=== PATIENT | female | born 1980 | race Caucasian/White ===

== ENCOUNTER 2017-02-16 09:24 | Emergency (ER) | payer OTHER ==
[2017-02-16 09:29] VITALS: BP 119/88
== END 2017-02-16 12:05 | disposition home or self-care (01) ==
LOC: ED 09:24
DX: M75.51 Bursitis of right shoulder (principal)

== ENCOUNTER 2017-04-04 16:50 | Emergency (ER) | payer OTHER ==
[~2017-04-04] VITALS: Ht 154.9 cm; Wt 52.2 kg
[2017-04-04 17:28] VITALS: BP 112/68
== END 2017-04-04 17:28 | disposition home or self-care (01) ==
LOC: ED 16:50
DX: R51 Headache (principal); R42 Dizziness and giddiness; H92.02 Otalgia, left ear; Z88.0 Allergy status to penicillin

== ENCOUNTER 2017-05-09 13:03 | Emergency (ER) | payer OTHER ==
[~2017-05-09] VITALS: Ht 154.9 cm; Wt 51.2 kg
[2017-05-09 14:37] LABS: AMPHETAMINE QUAL UR NONE DETECTED (NEG <=1000)
[2017-05-09 15:30] VITALS: BP 127/79
== END 2017-05-09 15:30 | disposition home or self-care (01) ==
LOC: ED 13:03
PROVIDERS: Emergency Medicine
DX: M79.7 Fibromyalgia (principal); M54.12 Radiculopathy, cervical region; M54.16 Radiculopathy, lumbar region; Z88.0 Allergy status to penicillin; Z90.710 Acquired absence of both cervix and uterus
CPT/HCPCS: J1885

== ENCOUNTER 2017-07-27 19:49 | Emergency (ER) | payer OTHER ==
[~2017-07-27] VITALS: Ht 154.9 cm; Wt 49.9 kg
[2017-07-27 19:57] VITALS: Ht 154.9 cm; Wt 49.9 kg
[2017-07-27 21:46] LABS: BASOPHIL % 0.7 % (0-2); PLATELET COUNT 268 x10^3mcL (130-400); RED CELL DISTRIBUTION WIDTH 12.4 % (11.5-14.5)
[2017-07-27 21:52] LABS: CALCIUM 8.6 mg/dL (8.5-10.1); CARBON DIOXIDE 27.5 mmol/L (21-32); CHLORIDE SERUM 104 mmol/L (98-107); CREATININE SERUM 0.7 mg/dL (0.6-1.0); GFR1 > 60 mL/min; GLUCOSE SERUM 107 mg/dL (74-106); POTASSIUM SERUM 3.6 mmol/L (3.5-5.1); SODIUM SERUM 141 mmol/L (136-145)
[2017-07-27 22:01] LABS: ALBUMIN 4.1 g/dL (3.4-5.0); ALKALINE PHOSPHATASE 93 U/L (46-116); ALT/SGPT 18 U/L (14-59); AST/SGOT 13 U/L (15-37); BILIRUBIN TOTAL 0.2 mg/dL (0.20-1.00)
[2017-07-27 22:48] VITALS: BP 116/82
== END 2017-07-27 22:48 | disposition home or self-care (01) ==
LOC: ED 19:49
PROVIDERS: Specialist
DX: R10.30 Lower abdominal pain, unspecified (principal); R11.0 Nausea; R19.7 Diarrhea, unspecified; R63.0 Anorexia; R42 Dizziness and giddiness; Z88.0 Allergy status to penicillin
CPT/HCPCS: J1885; J7030; Q0162

== ENCOUNTER 2017-09-18 10:15 | Emergency (ER) | payer OTHER ==
[~2017-09-18] VITALS: Ht 154.9 cm; Wt 49.4 kg
[2017-09-18 10:18] VITALS: Ht 154.9 cm; Wt 49.4 kg
[2017-09-18 12:59] VITALS: BP 112/72
== END 2017-09-18 12:59 | disposition home or self-care (01) ==
LOC: ED 10:15
DX: M79.631 Pain in right forearm (principal); H92.01 Otalgia, right ear; Z88.0 Allergy status to penicillin; Z90.710 Acquired absence of both cervix and uterus

== ENCOUNTER 2018-06-12 13:20 | Emergency (ER) | payer OTHER ==
[~2018-06-12] VITALS: Ht 154.9 cm; Wt 46.3 kg
[2018-06-12 13:25] VITALS: Ht 154.9 cm; Wt 46.3 kg
[2018-06-12 14:54] LABS: BASOPHIL % 0.7 % (0-2); PLATELET COUNT 259 x10^3mcL (130-400); RED CELL DISTRIBUTION WIDTH 12.4 % (11.5-14.5)
[2018-06-12 14:59] LABS: CARBON DIOXIDE 26.9 mmol/L (21-32); CHLORIDE SERUM 102 mmol/L (98-107); CREATININE SERUM 0.7 mg/dL (0.6-1.0); GFR1 > 60 mL/min; GLUCOSE SERUM 94 mg/dL (74-106); POTASSIUM SERUM 3.1 mmol/L (3.5-5.1); SODIUM SERUM 139 mmol/L (136-145)
[2018-06-12 16:59] VITALS: BP 112/68
== END 2018-06-12 16:59 | disposition home or self-care (01) ==
LOC: ED 13:20
PROVIDERS: Emergency Medicine
DX: R00.2 Palpitations (principal); R19.7 Diarrhea, unspecified; R11.10 Vomiting, unspecified; Z88.0 Allergy status to penicillin; Z90.711 Acquired absence of uterus with remaining cervical stump; Z98.890 Other specified postprocedural states
CPT/HCPCS: J3475; J7030; Q0092

== ENCOUNTER 2019-08-10 16:39 | Emergency (ER) | payer OTHER ==
[~2019-08-10] VITALS: Ht 154.9 cm; Wt 52.6 kg
[2019-08-10 16:46] VITALS: Ht 154.9 cm; Wt 52.6 kg
[2019-08-10 17:32] LABS: BASOPHIL % 0.7 % (0-2); PLATELET COUNT 221 x10^3mcL (130-400); RED CELL DISTRIBUTION WIDTH 12.3 % (11.5-14.5)
[2019-08-10 17:44] LABS: CARBON DIOXIDE 25.5 mmol/L (21-32); CHLORIDE SERUM 104 mmol/L (98-107); CREATININE SERUM 0.6 mg/dL (0.6-1.0); GFR1 > 60 mL/min; GLUCOSE SERUM 96 mg/dL (74-106); POTASSIUM SERUM 3.7 mmol/L (3.5-5.1); SODIUM SERUM 139 mmol/L (136-145)
[2019-08-10 18:59] VITALS: BP 119/68
== END 2019-08-10 18:59 | disposition home or self-care (01) ==
LOC: ED 16:39
PROVIDERS: Student in an Organized Health Care Education/Training Program
DX: G43.809 Other migraine, not intractable, without status migrainosus (principal); Z88.0 Allergy status to penicillin; Z90.711 Acquired absence of uterus with remaining cervical stump; Z98.890 Other specified postprocedural states
CPT/HCPCS: J0780; J7030

== ENCOUNTER 2020-02-18 17:48 | Emergency (ER) | payer OTHER, SELFPAY ==
[~2020-02-18] VITALS: Ht 154.9 cm; Wt 52.2 kg
[2020-02-18 17:50] VITALS: BP 118/75; Ht 154.9 cm; Wt 52.2 kg
== END 2020-02-18 19:01 | disposition home or self-care (01) ==
LOC: ED 17:48
DX: R11.0 Nausea (principal); R19.7 Diarrhea, unspecified; R06.02 Shortness of breath; Z88.0 Allergy status to penicillin; Z90.711 Acquired absence of uterus with remaining cervical stump; Z20.828 Contact with and (suspected) exposure to other viral communicable diseases
CPT/HCPCS: Q0092; U0003-CS

== ENCOUNTER 2020-03-20 16:56 | Emergency (ER) | payer OTHER, SELFPAY ==
[~2020-03-20] VITALS: Ht 154.9 cm; Wt 52.6 kg
[2020-03-20 16:58] VITALS: Ht 154.9 cm; Wt 52.6 kg
[2020-03-20 17:37] VITALS: BP 108/71
== END 2020-03-20 17:17 | disposition home or self-care (01) ==
LOC: ED 16:56
DX: R43.8 Other disturbances of smell and taste (principal); J02.9 Acute pharyngitis, unspecified; Z20.828 Contact with and (suspected) exposure to other viral communicable diseases; Z88.0 Allergy status to penicillin; Z90.711 Acquired absence of uterus with remaining cervical stump
CPT/HCPCS: U0003-CS

== ENCOUNTER 2020-06-17 20:24 | Emergency (ER) | payer OTHER, SELFPAY ==
[~2020-06-17] VITALS: Ht 154.9 cm; Wt 49.9 kg
[2020-06-17 20:25] VITALS: Ht 154.9 cm; Wt 49.9 kg
[2020-06-17 22:24] VITALS: BP 117/59
== END 2020-06-17 21:39 | disposition home or self-care (01) ==
LOC: ED 20:24
DX: B34.9 Viral infection, unspecified (principal); Z20.828 Contact with and (suspected) exposure to other viral communicable diseases; Z88.0 Allergy status to penicillin; Z90.710 Acquired absence of both cervix and uterus
CPT/HCPCS: U0003